=== PATIENT | male | born 1990 | race Caucasian/White ===

== ENCOUNTER 2017-05-30 19:41 | Emergency (ER) | payer MEDICAID ==
[~2017-05-30] VITALS: Ht 172.7 cm; Wt 127.0 kg
[2017-05-30 19:48] VITALS: BP 132/72
[2017-05-30 21:30] VITALS: BP 109/72
== END 2017-05-30 21:30 | disposition home or self-care (01) ==
LOC: MED 19:41
DX: J20.9 Acute bronchitis, unspecified (principal); J45.909 Unspecified asthma, uncomplicated
CPT/HCPCS: 36415; 71045; 87804; 99285

== ENCOUNTER 2017-12-10 00:49 | Emergency (ER) | payer MEDICAID ==
[~2017-12-10] VITALS: Ht 175.3 cm; Wt 129.3 kg
[~2017-12-10 00:49] MED LIST: ALBU0.0912 INH; LACT10CA PO; LEVO750T2 PO; METR500T1 PO
[2017-12-10 01:07] VITALS: BP 117/75
--- NOTE | 2017-12-10 01:11 | NUR ---
PT AMBULATED TO LOBBY WITH VSS.
--- NOTE | 2017-12-10 03:22 | NUR ---
PT TO ER BED 12
[2017-12-10] MEDS ORDERED: IPRATROPIUM 0.02% 0.5 MG/2.5 ML NEBU INH ONE (03:30)
[2017-12-10] MEDS ORDERED: KETOROLAC 60 MG/2 ML VIAL IM ONE (03:30)
[2017-12-10] MEDS ORDERED: predniSONE 20 MG TAB PO ONE (03:30)
[2017-12-10] MEDS ORDERED: AZITHROMYCIN 250 MG TAB PO ONE (03:30)
[2017-12-10] MEDS ORDERED: ALBUTEROL 0.083% 2.5 MG/3 ML NEBU INH ONE (03:30)
--- NOTE | 2017-12-10 03:30 | NUR ---
27/M CAME IN ED, C/O SOB AND PLEURITIC CP X6 DAYS. PT REPORTS HAVING PRODUCTIVE COUGH. REPORTS FEVER THAT RESOLVED 6 DAYS AGO. PT REPORTS TAKING INHALER Q6H PRN, ADVIL, THERAFLU AND ROBITUSSIN WITH NO RELIEF. LUNG SOUNDS WHEEZE BL. SPO2 93% ON RA, RR 18 EVEN AND UNLABORED. VSS. PLACED ON MONITOR. HX ASTHMA, APPY, R HIP REPLACEMENT
--- NOTE | 2017-12-10 04:09 | NUR ---
RT AT BEDSIDE FOR BREATHING TX
--- NOTE | 2017-12-10 04:09 | NUR ---
XR AT BEDSIDE
[2017-12-10 04:22] LABS: BASOPHILS # (AUTO) 0.1 K/uL (0.00-0.22); BASOPHILS % (AUTO) 0.9 % (0.0-2.0); EOSINOPHILS # (AUTO) 0.8 K/uL (0-0.4); EOSINOPHILS % (AUTO) 12.2 % (0.0-4.0); HEMATOCRIT 47.4 % (36-52); HEMOGLOBIN 15.9 g/dL (12.0-18.0); LYMPHOCYTES # (AUTO) 1.9 K/uL (2.0-11.5); LYMPHOCYTES % (AUTO) 29.1 % (20.5-51.1); MEAN CORPUSCULAR HEMOGLOBIN 29 pg (27-31); MEAN CORPUSCULAR HGB CONC 34 g/dL (33-37); MEAN CORPUSCULAR VOLUME 86.9 fL (80-94); MONOCYTES # (AUTO) 0.5 K/uL (0.8-1.0); MONOCYTES % (AUTO) 7.1 % (1.7-9.3); NEUTROPHILS # (AUTO) 3.3 K/uL (1.8-7.7); NEUTROPHILS % (AUTO) 50.7 % (42.2-75.2); PLATELET COUNT (AUTO) 293 K/uL (140-450); RED BLOOD CELL COUNT(AUTO) 5.46 MIL/uL (4.20-6.10); RED CELL DISTRIBUTION WIDTH 13.3 % (11.6-13.7); WHITE BLOOD COUNT (AUTO) 6.6 K/uL (4.8-10.8)
[2017-12-10 04:41] LABS: BARBITURATE, URINE NEG. ng/ml (NEG <=200); BENZODIAZEPINE, URINE NEG. ng/mL (NEG <=200); CANNABINOID, URINE NEG. ng/mL (NEG <=50); COCAINE, URINE NEG. ng/mL (NEG <=300); OPIATE, URINE NEG. ng/mL (NEG <=2000); PHENCYCLIDINE SCREEN,URINE NEG. ng/mL (NEG <=25)
[2017-12-10 04:45] LABS: ALBUMIN 4.1 g/dL (3.4-5.0); ANION GAP 7.9 (8-16); CARBON DIOXIDE 30.1 mmol/L (21-32); TOTAL BILIRUBIN 0.3 mg/dL (0.0-1.0)
[2017-12-10 05:35] VITALS: BP 122/73
--- NOTE | 2017-12-10 05:35 | NUR ---
Patient discharged with v/s stable. Written and verbal after care instructions given and explained. Patient alert, oriented and verbalized understanding of instructions. Ambulatory with steady gait. All questions addressed prior to discharge. ID band removed. Patient advised to follow up with PMD. Rx of ZITROMAX, ALBUTEROL, PREDNISONE given. Patient educated on indication of medication including possible reaction and side effects. Opportunity to ask questions provided and answered.
== END 2017-12-10 05:35 | disposition home or self-care (01) ==
LOC: MED 00:49
DX: J45.901 Unspecified asthma with (acute) exacerbation (principal); Z79.899 Other long term (current) drug therapy
CPT/HCPCS: 36415; 71045; 80053; 80305; 84484; 85025; 93005; 94640; 96372; 99285; J1885; J7512; J7613; J7644; Q0092

== ENCOUNTER 2018-07-06 00:21 | Emergency (ER) | payer MEDICAID ==
[~2018-07-06] VITALS: Ht 175.3 cm; Wt 135.6 kg
[2018-07-06 00:26] VITALS: BP 121/79
--- NOTE | 2018-07-06 00:26 | NUR ---
to bed#03 ambulatory, report given to Patti bland
--- NOTE | 2018-07-06 00:41 | NUR ---
BIB SELF WITH C/O SOB X1 WEEK WORSE TODAY. STATES THAT HE HAS BEEN TAKING INH AND BREATHING TREATMENTS AT HOME PRESCRIBED WITHOUT RELIEF. CURRENTLY NO RESP DISTRESS NOTED, LUNG SOUND DIMINISHED THROUGHOUT. SPO2 97% ON ROOM AIR. HX ASTHMA.
[2018-07-06 00:54] VITALS: BP 121/79
--- NOTE | 2018-07-06 00:54 | NUR ---
Patient discharged with v/s stable. Written and verbal after care instructions given and explained. Patient alert, oriented and verbalized understanding of instructions. Ambulatory with steady gait. All questions addressed prior to discharge. ID band removed. Patient advised to follow up with PMD. Rx of Prednisone 50mg, Azithromycin 250mg, Promethazine Hydrochloride/Dextromethorphan Hydrobromide given. Patient educated on indication of medication including possible reaction and side effects. Opportunity to ask questions provided and answered.
== END 2018-07-06 00:54 | disposition home or self-care (01) ==
LOC: MED 00:21
DX: J02.8 Acute pharyngitis due to other specified organisms (principal); B96.89 Other specified bacterial agents as the cause of diseases classified elsewhere; J45.909 Unspecified asthma, uncomplicated; Z79.899 Other long term (current) drug therapy
CPT/HCPCS: 99283

== ENCOUNTER 2018-07-09 10:07 | Emergency (ER) | payer MEDICAID ==
[~2018-07-09] VITALS: Ht 175.3 cm; Wt 136.1 kg
[2018-07-09 10:15] VITALS: BP 125/70
--- NOTE | 2018-07-09 10:19 | NUR ---
Patient ambulated to bed 6. RN evaluating patient at bedside.
--- NOTE | 2018-07-09 10:20 | NUR ---
27 Y MALE BIB SELF C/O SOB since yesterday, worse today also c/o chest tightness and productive cough 8/ pain, currently prescribed antibiotics and steriods for throat infection from ER visit saturday night, pt states he still feels short of breath. lungs sounds clear bilaterally, +lightheaded, +diarrhea starting today. bed is down, locked, bed rail x 1, ermd notified. hx asthma rx- albuterol and ibuprofen this morning, nebulizer last night
--- NOTE | 2018-07-09 10:29 | NUR ---
pt placed on monitor
--- NOTE | 2018-07-09 11:32 | NUR ---
pt sleeping, vss at this time
--- NOTE | 2018-07-09 11:35 | NUR ---
Dr. Garnett evaluating patient at bedside.
--- NOTE | 2018-07-09 11:46 | NUR ---
pt placed on oxygen 2 L nc, oxygen sat 93
[2018-07-09] MEDS ORDERED: NACL 0.9% 1,000 ML IV ONE (11:55)
[2018-07-09] MEDS ORDERED: KETOROLAC 15 MG/ML VIAL IVP ONE (11:55)
--- NOTE | 2018-07-09 12:02 | NUR ---
lab at bedside
--- NOTE | 2018-07-09 12:02 | NUR ---
flu swab collected
[2018-07-09 12:23] LABS: BASOPHILS % (AUTO) 0.3 % (0.0-2.0); EOSINOPHILS # (AUTO) 0.1 K/uL (0-0.4); EOSINOPHILS % (AUTO) 0.7 % (0.0-4.0); HEMATOCRIT 45.4 % (36-52); HEMOGLOBIN 15.1 g/dL (12.0-18.0); LYMPHOCYTES # (AUTO) 0.5 K/uL (2.0-11.5); LYMPHOCYTES % (AUTO) 4.7 % (20.5-51.1); MEAN CORPUSCULAR HEMOGLOBIN 29 pg (27-31); MEAN CORPUSCULAR HGB CONC 33 g/dL (33-37); MEAN CORPUSCULAR VOLUME 87.1 fL (80-94); MONOCYTES # (AUTO) 0.4 K/uL (0.8-1.0); NEUTROPHILS % (AUTO) 90.3 % (42.2-75.2); PLATELET COUNT (AUTO) 270 K/uL (140-450); RED BLOOD CELL COUNT(AUTO) 5.21 MIL/uL (4.20-6.10); RED CELL DISTRIBUTION WIDTH 13.3 % (11.6-13.7)
[2018-07-09 12:35] LABS: ANION GAP 13.5 (8-16); CARBON DIOXIDE 23.3 mmol/L (21-32); CREATININE 0.9 mg/dL (0.7-1.3); POTASSIUM 3.8 mmol/L (3.5-5.1)
[2018-07-09 12:41] LABS: ALBUMIN 3.6 g/dL (3.4-5.0); TOTAL BILIRUBIN 0.2 mg/dL (0.0-1.0)
[2018-07-09 14:02] VITALS: BP 119/88
== END 2018-07-09 14:00 | disposition home or self-care (01) ==
LOC: MED 10:07
DX: R07.89 Other chest pain (principal); R05 Cough; R09.89 Other specified symptoms and signs involving the circulatory and respiratory systems; J45.909 Unspecified asthma, uncomplicated; Z79.899 Other long term (current) drug therapy
CPT/HCPCS: 36415; 71046; 80053; 85025; 87804; 93005; 96374; 99284; J1885; J7030

== ENCOUNTER 2018-11-10 19:19 | Emergency (ER) | payer MEDICAID ==
[~2018-11-10] VITALS: Ht 177.8 cm; Wt 131.5 kg
[2018-11-10 19:20] VITALS: BP 128/80
--- NOTE | 2018-11-10 19:23 | NUR ---
TO LOBBY A/W BED AMBULATORY
--- NOTE | 2018-11-10 19:42 | NUR ---
PT AMBULATED TO ER BED 06
--- NOTE | 2018-11-10 19:50 | NUR ---
Note undone in EDM - 11/10/18 at 2004 by [email or web address] PT CAME TO ER C/O SOB X 2 DAYS WITH COUGH. PER PT SHE TAKES FLUTEICASONE PROPIUNATEE 250MCG/SALMETEROL 50MCG. PER PT SHE TOOK 2 PUFFS OF ALBUTEROL AT 19:15. PT IN HIGH FOWLERS POSITION. RESPIRATIONS ARE EVEN AND O2 AT 96% ON ROOM AIR. BREATH SOUNDS BILATERALLY COARSE IN UPPER AIRWAYS. MED HX: DM, ASTHMA, AND COPD. ALLERGIES: SULFA. SAFETY MEASURES IN PLACE. WAITING FOR ERMD TO EVALUATE PT.
--- NOTE | 2018-11-10 20:12 | NUR ---
PT CAME TO ER C/O OF SOB X 2 DAYS. PT HAS OCASSIONAL PRODUCTIVE COUGH WITH CLEAR PHLEGM. PT TOOK HIS RX ALBUTEROL SULFATE AT 1830. PT RESPIRATIONS ARE EVEN AND UNLABORED. BREATH SOUNDS ARE BILATERALLY CLEAR. PT SATURATION AT 96% ON ROOM AIR. MED HX: ASTHMA, HIP RECONSTRUCTION IN 2004, AND APPENDECTOMY IN 1994. SAFETY MEASURES IN PLACE. PT IN HIGH FOWLERS POSTION. WAITING FOR ERMD TO EVALUATE PT.
--- NOTE | 2018-11-10 21:00 | NUR ---
ERMD AT BEDSIDE
[2018-11-10] MEDS ORDERED: DEXAMETHASONE 4 MG/ML VIAL PO ONE (21:05)
[2018-11-10] MEDS ORDERED: IPRATROPIUM 0.02% 0.5 MG/2.5 ML NEBU INH PRN ×2 (21:05→21:15)
[2018-11-10] MEDS ORDERED: ALBUTEROL 0.083% 2.5 MG/3 ML NEBU INH PRN ×2 (21:05→21:15)
[2018-11-10] MEDS ORDERED: ALBUTEROL SULFATE/IPRATROPIU 3 ML SOL INH PRN (21:05)
--- NOTE | 2018-11-10 21:19 | NUR ---
PT BACK FROM RADIOLOGY
--- NOTE | 2018-11-10 21:28 | NUR ---
RT AT BEDSIDE
--- NOTE | 2018-11-10 22:36 | NUR ---
PER PT HE STATES HE FEELS ALOT BETTER. NO SHORTNESS OF BREATH. RESPIRATIONS ARE EVEN AND UNLABORED, O2 SATURATION IS 95% ON RA.
--- NOTE | 2018-11-10 23:00 | NUR ---
PT RESTING IN BED, WITH EYES CLOSED, EASILY ARROUSABLE. VSS. WILL CONTINUE TO MONITOR.
--- NOTE | 2018-11-10 23:20 | NUR ---
ERMD AT BEDSIDE
[2018-11-10 23:58] VITALS: BP 117/75
--- NOTE | 2018-11-10 23:58 | NUR ---
Patient discharged with v/s stable. Written and verbal after care instructions given and explained. Patient alert, oriented and verbalized understanding of instructions. Ambulatory with steady gait. All questions addressed prior to discharge. ID band removed. Patient advised to follow up with PMD. Rx of VENTOLIN given. Patient educated on indication of medication including possible reaction and side effects. Opportunity to ask questions provided and answered.
== END 2018-11-10 23:58 | disposition home or self-care (01) ==
LOC: MED 19:19
DX: J45.901 Unspecified asthma with (acute) exacerbation (principal); Z79.2 Long term (current) use of antibiotics; Z79.899 Other long term (current) drug therapy; Z90.89 Acquired absence of other organs
CPT/HCPCS: 71046; 99283; J1100; J7613; J7644; 94644

== ENCOUNTER 2018-12-28 04:00 | Emergency (ER) | payer MEDICAID ==
[~2018-12-28] VITALS: Ht 172.7 cm; Wt 133.8 kg
[2018-12-28 04:03] VITALS: BP 115/65
--- NOTE | 2018-12-28 04:10 | NUR ---
28 Y/O M PRESENTES TO ED WITH C/O DIFFICUTLY BREATHING X1 WEEK, WORSENING WITHIN PAST FEW HOURS. PT MEDICATED WTIH NEUBULIZER AND ALBUTEROL INHALER WITH NO RELIEF OF SYMPTOMS. INHALER USED 30MINS ICE CARVER AND NEBULIZER AT 2100 YESTERDAY. WHEEZING HEARD IN UPPER LOBES. O2 SATURATION 95% ON RA. ERMD MADE AWARE OF PT STATUS WILL CONTINUE TO MONITOR. HX- ASTHMA, SLEEP APNEA, RT HIP RECONSTRUCTION NKA
[2018-12-28] MEDS ORDERED: ALBUTEROL SULFATE/IPRATROPIU 3 ML SOL IH ONE (04:15)
[2018-12-28] MEDS ORDERED: predniSONE 20 MG TAB PO ONE (04:15)
--- NOTE | 2018-12-28 04:45 | NUR ---
O2 SATURATION 93% ON RA. O2 THERAPY INTIATED. PT PALCED ON 2L VIA NASAL CANNULA. O2 SATURATION MAINTAINED AT 99%.
[2018-12-28] MEDS ORDERED: ALBUTEROL 0.083% 2.5 MG/3 ML NEBU INH ONE (05:00)
--- NOTE | 2018-12-28 05:09 | NUR ---
RT AT BEDSIDE
--- NOTE | 2018-12-28 05:50 | NUR ---
PT RESTING IN BED COMFORTABLY, WITH EYES CLOSED. VSS ON 2L OF O2 VIA NC. WILL CONTINUE TO MONITOR.
--- NOTE | 2018-12-28 06:32 | NUR ---
ERMD AT BEDSIDE
[2018-12-28 06:47] VITALS: BP 130/66
--- NOTE | 2018-12-28 06:48 | NUR ---
Patient discharged with v/s stable. Written and verbal after care instructions given and explained. PT WAS EDUCATED ON IN HOME PT CARE. Patient alert, oriented and verbalized understanding of instructions. Ambulatory with steady gait. All questions addressed prior to discharge. ID band removed. Patient advised to follow up with PMD. Rx of PREDNISONE AND ALBUTEROL WAS given. Patient educated on indication of medication including possible reaction and side effects. Opportunity to ask questions provided and answered. PT STATED HIS PAIN LEVEL WAS 0/10 AT THIS TIME PRIOR TO D/C.
== END 2018-12-28 06:47 | disposition home or self-care (01) ==
LOC: MED 04:00
DX: R06.00 Dyspnea, unspecified (principal); Z53.21 Procedure and treatment not carried out due to patient leaving prior to being seen by health care provider
CPT/HCPCS: 94640; J7512; J7613; J7620; 99283

== ENCOUNTER 2019-01-14 11:08 | Emergency (ER) | payer MEDICAID ==
[~2019-01-14] VITALS: Ht 172.7 cm; Wt 131.5 kg
[2019-01-14 11:11] VITALS: BP 124/79
--- NOTE | 2019-01-14 11:21 | NUR ---
PT AMB TO BED 9
--- NOTE | 2019-01-14 11:32 | NUR ---
C/O COUGH & MID CHEST PAIN X 2 WEEKS . SEEN HERE 2 WEEKS AGO SAME S/S. MED HX: ASTHMA
[2019-01-14] MEDS ORDERED: ALBUTEROL 0.083% 2.5 MG/3 ML NEBU INH ONE (11:50)
[2019-01-14] MEDS ORDERED: predniSONE 20 MG TAB PO ONE (11:50)
[2019-01-14] MEDS ORDERED: IPRATROPIUM 0.02% 0.5 MG/2.5 ML NEBU INH ONE (11:50)
--- NOTE | 2019-01-14 12:06 | NUR ---
DX: COUGH HX: ASTHMA C/O SOB LOC AWAKE AND ALERT VERBALLY RESPONSIVE [facility] THERAPY AND RESPIRATORY DRUGS GIVEN ORDERED ENCOURAGED PATIENT FOR INTERMITTENT DEEP BREATHING AND COUGH DURING THERAPY Addendum: 01/14/19 at 1316 by DAWOOD PEAK FLOW: before 210 L after 580 L
--- NOTE | 2019-01-14 12:20 | NUR ---
Respiratory Therapist at bedside for respiratory intervention.
[2019-01-14 14:27] VITALS: BP 104/58
== END 2019-01-14 14:27 | disposition home or self-care (01) ==
LOC: MED 11:08
DX: R06.02 Shortness of breath (principal); R05 Cough; J45.909 Unspecified asthma, uncomplicated; Z79.899 Other long term (current) drug therapy
CPT/HCPCS: 94640; 99283; J7512; J7613; J7644; 94644